=== PATIENT | male | born 1975 | race Caucasian/White ===

== ENCOUNTER 2018-04-02 14:47 | Observation (INO) | payer OTHER ==
[~2018-04-02] VITALS: Ht 182.9 cm; Wt 99.8 kg
--- OUTSIDE RECORDS SUMMARY | 2018-04-02 14:51 | XMS REPORT | Continuity of Care Document ---
Author Author [facility] Organization [facility] Address Unknown Phone Unavailable Allergies There is no data. Medications There is no data. Problems Date Dx Coded Attending Type Code Diagnosis Diagnosed By 04/24/2012 Ot 257.2 04/24/2012 Ot 608.85 08/11/2012 Ot 257.2 08/11/2012 Ot 608.85 05/25/2014 JOSÉ MIGUEL MITCHELL, JAMSHID Agu[place] Ot 606.1 06/14/2014 Ot 257.2 06/14/2014 Ot 608.85 06/14/2014 JOSÉ MIGUEL MITCHELL, JAMSHID [place] Ot 606.1 06/15/2014 NISHA MITCHELL, FREEDOM [place] Ot 606.9 07/27/2014 NISHA MITCHELL, FREEDOM [place] Ot 606.9 08/18/2014 Ot 257.2 08/18/2014 Ot 608.85 08/18/2014 JOSÉ MIGUEL MITCHELL, JAMSHID [place] Ot 606.1 08/18/2014 NISHA MITCHELL, FREEDOM [place] Ot 606.9 09/12/2014 NISHA MITCHELL, FREEDOM [place] Ot 606.9 11/26/2014 NISHA MITCHELL, FREEDOM [place] Ot 606.9 01/04/2015 NISHA MITCHELL, FREEDOM A Ot 606.9 01/05/2015 NISHA MITCHELL, FREEDOM A Ot 606.9 01/26/2015 NISHA MITCHELL, FREEDOM Burgos Ot 606.9 Procedures There is no data. Results There is no data. Encounters ACCT No. Visit Date/Time Discharge Status Pt. Type Provider Facility Loc./Unit Complaint [id number] 01/27/2015 00:56:00 01/27/2015 23:59:59 CLS Preadmit FREEDOM CAMERON MD [facility] LAB [id number] 01/19/2015 11:14:00 01/26/2015 00:01:00 DIS Outpatient FREEDOM CAMERON MD [facility] LAB [id number] 10/01/2014 08:03:00 12/28/2014 00:01:00 DIS Outpatient FREEDOM CAMERON MD [facility] LAB [id number] 09/29/2014 12:43:00 09/29/2014 12:43:00 CAN Preadmit FREEDOM CAMERON MD [facility] LAB [id number] 06/14/2014 15:57:00 06/14/2014 23:59:59 CLS Outpatient FREEDOM CAMERON MD [facility] LAB [id number] 05/26/2014 00:37:00 05/26/2014 23:59:59 CLS Preadmit JAMSHID VALDEZ MD [facility] LAB [id number] 03/01/2014 07:51:00 05/25/2014 00:01:00 DIS Outpatient JAMSHID VALDEZ MD [facility] LAB [id number] 08/12/2012 00:00:00 Document Registration [id number] 05/15/2012 06:10:00 Document Registration [id number] 01/31/2012 14:02:00 Document Registration [id number] 01/20/2015 04:21:36 ACT Document Registration
--- OUTSIDE RECORDS SUMMARY | 2018-04-02 14:51 | XMS REPORT | Clinical Summary ---
Author Author [facility] Organization [facility] Address Unknown Phone Unavailable Care Team Providers Care Lens Maker Name Role Phone Pedro Finn MD Unavailable Source Comments Some departments are not documenting in the electronic medical record. If you do not see the information that you expected, contact Release of Information in the Health Information Management department at [phone] for further assistance in locating additional records.[facility] Allergies No Known Allergies Current Medications Prescription Sig. Disp. Refills Start End Date Status Date clomiPRAMINE(+) Take 50 mg by mouth at Active (ANAFRANIL) 50 mg capsule bedtime daily. omeprazole DR(+) Take 40 mg by mouth Active (PRILOSEC) 40 mg capsule daily. MONTELUKAST SODIUM Take by mouth. 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 Miscarriage at 9 weeks, 1 year later in 2012. SAs variable but good patency. Motility decreased - last SA 01/11 25% Trial of clomid by Dr Spencer. 06/13 until now. . Normal cycles. L ast Assessment & Plan: Post vas reversal infertility. Good patency. 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 Repeat Sa with ASA Role of IUI vs IVF will be in part based on severity of ASA and/or consideration of trial IUI prep and IUI even in the face of ASA - some data does show that not always relevent - will see if head binding. Etc. Family History Medical History Relation Name Comments Stroke Father Testicular Cancer Paternal Grandmother Relation Name Status Comments Father Paternal Grandmother Social History Tobacco Use Types Packs/Day Years Used Date Never Smoker Smokeless Tobacco: Never Used Alcohol Use Drinks/Week oz/Week Comments No 0 Standard 0.0 drinks or equivalent Sex Assigned at Date Recorded Not on file Last Filed Vital Signs Vital Sign Reading Time Taken Blood Pressure 163/84 03/16/2015 12:44 PM HAND BOBBIN CLE[employer]ER Pulse 67 03/16/2015 12:44 PM HAND [employer] Temperature 37 C (98.6 F) 03/16/2015 12:44 PM HAND [employer]OBBIN [employer] Respiratory Rate - - Oxygen Saturation - - Inhaled Oxygen - - Concentration Weight 97.5 kg (215 lb) 03/16/2015 12:44 PM HAND [employer] CLE[employer] Height 182.9 cm (6') 03/16/2015 12:44 PM HAND [employer]OBBIN CLE[employer]ER Body Mass Index 29.16 03/16/2015 12:44 PM HAND [employer]OBBIN [employer]ER Plan of Treatment Health Maintenance Due Date Last Done Comments PHYSICAL (COMPREHENSIVE) 1981 EXAM HIV SCREENING 1989 DTAP/TDAP VACCINES (1 - 1992 Tdap) INFLUENZA VACCINE 11/27/2017 Results Not on filefrom Last 3 Months
[2018-04-02] MEDS ORDERED: NS IV 1000 ML 1,000 ML IV SCH (15:49)
[2018-04-02 15:58] LABS: BASOPHILS # (AUTO) 0.1 10^3/uL (0.0-0.1); BASOPHILS % (AUTO) 0 % (0-10); EOSINOPHILS # (AUTO) 0.2 10^3/uL (0.0-0.3); EOSINOPHILS % (AUTO) 1 % (0-10); HEMATOCRIT 47 % (40-54); HEMOGLOBIN 16.6 G/DL (13.3-17.7); LYMPHOCYTES % (AUTO) 17 % (12-44); MEAN CORPUSCULAR HEMOGLOBIN 31 PG (25-34); MEAN CORPUSCULAR HGB CONC 35 G/DL (32-36); MEAN CORPUSCULAR VOLUME 87 FL (80-99); MONOCYTES # (AUTO) 1.7 X 10^3 (0.0-1.0); MONOCYTES % (AUTO) 10 % (0-12); NEUTROPHILS # (AUTO) 12.6 X 10^3 (1.8-7.8); NEUTROPHILS % (AUTO) 72 % (42-75); PLATELET COUNT 243 10^3/uL (130-400); RED CELL DISTRIBUTION WIDTH 12.7 % (10.0-14.5); WHITE BLOOD COUNT 17.6 10^3/uL (4.3-11.0)
[2018-04-02 15:58] LABS: BILIRUBIN,URINE NEGATIVE (NEGATIVE); CLARITY,URINE CLEAR; COLOR,URINE YELLOW; GLUCOSE, URINE (UA) NEGATIVE (NEGATIVE); KETONES,URINE NEGATIVE (NEGATIVE); LEUKOCYTE ESTERASE ,URINE NEGATIVE (NEGATIVE); NITRITE,URINE NEGATIVE (NEGATIVE); PH,URINE 5 (5-9); PROTEIN,URINE NEGATIVE (NEGATIVE); UROBILINOGEN,URINE NORMAL (NORMAL)
[2018-04-02] MEDS ORDERED: IOHEXOL 350 MG/ML 100 ML (OMNIPAQUE 350) VIAL IV ONE (16:00)
[2018-04-02] MEDS ORDERED: RECEIVED CONTRAST (Hold Metformin) IV SCH (16:00)
[2018-04-02] MEDS ORDERED: NS 250 ML (IVPB) BAG IV ONE (16:00)
[2018-04-02] MEDS ORDERED: KETOROLAC 30 MG/ML VIAL IVP ONE (16:00)
--- NOTE | 2018-04-02 16:02 | ED Abdominal Pain ---
General Stated Complaint: ABD PAIN Source of Information: Patient Exam Limitations: No Limitations History of Present Illness Date Seen by Provider: Apr 02, 2018 Time Seen by Provider: 15:35 Initial Comments Patient is a 42-year-old male who presents to emergency room with complaints of left lower quadrant abdominal pain and tenderness that started around 5:30 this morning. He denies nausea, vomiting, diarrhea and thought that this was just a little bit of constipation pain is normal for him but has just continued to get worse. Timing/Duration: 12 Hours Severity/Quality: Severe Location: LLQ Associated Symptoms: Denies Symptoms Allergies and Home Medications Allergies Coded Allergies: No Known Drug Allergies (Unverified , 04/02/18) Patient Home Medication List Home Medication List Reviewed: Yes Review of Systems Review of Systems Constitutional: no symptoms reported, see HPI Gastrointestinal: See HPI, Abdominal Pain All Other Systems Reviewed Negative Unless Noted: Yes Past Pzinroe-Eayznj-Vbaqtb Hx Past Med/Social Hx: Reviewed Nursing Past Med/Soc Hx Family Medical History Reviewed Nursing Family Hx Physical Exam Vital Signs Vital Signs - First Documented 04/02/18 15:30 Temp 98.1 Pulse 100 Resp 11 B/P (MAP) 144/99 (114) Pulse Ox 98 O2 Delivery Room Air Capillary Refill : Height/Weight/BMI Height: '" Weight: lbs. oz. kg; BMI Method: General Appearance: WD/WN, no apparent distress Respiratory: chest non-tender, lungs clear, normal breath sounds, no respiratory distress, no accessory muscle use Cardiovascular: normal peripheral pulses, regular rate, rhythm, no edema, no gallop, no JVD, no murmur Gastrointestinal: normal bowel sounds, soft, no organomegaly, no pulsatile mass , guarding, tenderness (severe left lower quadrant tenderness with light palpation.) Neurologic/Psychiatric: alert, normal mood/affect, oriented x 3 Skin: normal color, warm/dry Progress/Results/Core Measures Results/Orders Lab Results Laboratory Tests Test 04/02/18 15:30 04/02/18 15:45 Range/Units Urine Color YELLOW Urine Clarity CLEAR Urine pH 5 5-9 Urine Specific [place] 1.020 1.016-1.022 Urine Protein NEGATIVE NEGATIVE Urine Glucose (UA) NEGATIVE NEGATIVE Urine Ketones NEGATIVE NEGATIVE Urine Nitrite NEGATIVE NEGATIVE Urine Bilirubin NEGATIVE NEGATIVE Urine Urobilinogen NORMAL NORMAL MG/DL Urine Leukocyte Esterase NEGATIVE NEGATIVE Urine RBC (Auto) NEGATIVE NEGATIVE Urine RBC NONE /HPF Urine WBC NONE /HPF Urine Squamous Epithelial Cells RARE /HPF Urine Crystals NONE /LPF Urine Bacteria NONE /HPF Urine Casts NONE /LPF Urine Mucus NEGATIVE /LPF Urine Culture Indicated NO White Blood Count 17.6 H 4.3-11.0 10^3/uL Red Blood Count 5.40 4.35-5.85 10^6/uL Hemoglobin 16.6 13.3-17.7 G/DL Hematocrit 47 40-54 % Mean Corpuscular Volume 87 80-99 FL Mean Corpuscular Hemoglobin 31 25-34 PG Mean Corpuscular Hemoglobin Concent 35 32-36 G/DL Red Cell Distribution Width 12.7 10.0-14.5 % Platelet Count 243 130-400 10^3/uL Mean Platelet Volume 10.0 7.4-10.4 FL Neutrophils (%) (Auto) 72 42-75 % Lymphocytes (%) (Auto) 17 12-44 % Monocytes (%) (Auto) 10 0-12 % Eosinophils (%) (Auto) 1 0-10 % Basophils (%) (Auto) 0 0-10 % Neutrophils # (Auto) 12.6 H 1.8-7.8 X 10^3 Lymphocytes # (Auto) 3.0 1.0-4.0 X 10^3 Monocytes # (Auto) 1.7 H 0.0-1.0 X 10^3 Eosinophils # (Auto) 0.2 0.0-0.3 10^3/uL Basophils # (Auto) 0.1 0.0-0.1 10^3/uL Neutrophils % (Manual) 68 % Lymphocytes % (Manual) 23 % Monocytes % (Manual) 5 % Eosinophils % (Manual) 2 % Basophils % (Manual) 0 % Band Neutrophils 2 % Blood Morphology Comment NORMAL Sodium Level 139 135-145 MMOL/L Potassium Level 4.2 3.6-5.0 MMOL/L Chloride Level 102 98-107 MMOL/L Carbon Dioxide Level 27 21-32 MMOL/L Anion Gap 10 5-14 MMOL/L Blood Urea Nitrogen 17 7-18 MG/DL Creatinine 1.06 0.60-1.30 MG/DL Estimat Glomerular Filtration Rate > 60 BUN/Creatinine Ratio 16 Glucose Level 95 70-105 MG/DL Calcium Level 9.9 8.5-10.1 MG/DL Corrected Calcium 8.5-10.1 MG/DL Total Bilirubin 1.5 H 0.1-1.0 MG/DL Aspartate Amino Transf (AST/SGOT) 21 5-34 U/L Alanine Aminotransferase (ALT/SGPT) 34 0-55 U/L Alkaline Phosphatase 73 40-136 U/L Total Protein 7.4 6.4-8.2 GM/DL Albumin 4.6 H 3.2-4.5 GM/DL Amylase Level 49 25-125 U/L Lipase 17 8-78 U/L My Orders Orders - TENA ARANDA Comprehensive Metabolic Panel (04/02/18 15:39) Lipase (04/02/18 15:39) Amylase (04/02/18 15:39) Saline Lock/Iv-Start (04/02/18 15:39) Cbc With Automated Diff (04/02/18 15:39) Ct Abdomen/Pelvis W (04/02/18 15:39) Iohexol Injection (Omnipaque 350 Mg/Ml 1 (04/02/18 16:00) Contrast Received (Contrast Received) (04/02/18 16:00) Ns (Ivpb) (Sodium Chloride 0.9%) (04/02/18 16:00) Ketorolac Injection (Toradol Injection) (04/02/18 16:00) Saline Lock/Iv-Start (04/02/18 15:49) Ns Iv 1000 Ml (Sodium Chloride 0.9%) (04/02/18 15:49) Manual Differential (04/02/18 15:45) Medications Given in ED Current Medications Medications Dose Ordered Sig/Vanda Route Start Time Stop Time Status Last Admin Dose Admin Iohexol 100 ml ONCE ONCE IV 04/02/18 16:00 04/02/18 16:01 DC 04/02/18 16:08 100 ML Ketorolac Tromethamine 30 mg ONCE ONCE IVP 04/02/18 16:00 04/02/18 16:01 DC 04/02/18 16:00 30 MG Sodium Chloride 250 ml ONCE ONCE IV 04/02/18 16:00 04/02/18 16:01 DC 04/02/18 16:08 80 ML Vital Signs/I&O 04/02/18 15:30 Temp 98.1 Pulse 100 Resp 11 B/P (MAP) 144/99 (114) Pulse Ox 98 O2 Delivery Room Air 04/03/18 00:00 Intake Total 1000 ml Balance 1000 ml Progress Progress Note : Time: 17:19 Progress Note I have seen and evaluated the patient and informed him of laboratory and imaging studies. I have informed him of plans for admission. I have discussed case with Dr. Salomon and Dr. Castillo and they agree with plans for admission. Diagnostic Imaging Diagonstic Imaging: CT Plain Films/CT/US/NM/MRI: abdomen, pelvis Comments [facility] [place] NAME: TENA RYDER [facility] REC#: [id number] PT STATUS: REG ER : 1975 PHYSICIAN: TENA ARANDA ADMIT DATE: 04/02/18/ER Draft Date of Exam:04/02/18 CT ABDOMEN/PELVIS W PROCEDURE: CT abdomen and pelvis with contrast. TECHNIQUE: Multiple contiguous axial images were obtained through the abdomen and pelvis after administration of intravenous contrast. INDICATION: Left lower quadrant abdominal pain. FINDINGS: There is mild dependent atelectasis in the lung bases. Mild low-density seen throughout the liver indicating steatosis. Gallbladder surgically absent. No focal hepatic, pancreatic or splenic lesion is identified. Adrenal glands are unremarkable. There are multiple scattered low-density nodules in both kidneys likely representing cortical cyst. There is excretion of contrast from both kidneys. The appendix has a normal appearance. There is mild to moderate mural thickening in the distal descending colon extending into the upper sigmoid colon with mild surrounding edema and/or inflammation. No focal fluid collection is identified to indicate an abscess. Partially opacified urinary bladder is unremarkable. IMPRESSION: Findings are consistent with acute diverticulitis involving the distal descending colon and sigmoid colon without evidence of perforation or abscess. Dictated on workstation # [id number] Dict: 04/02/18 1624 Trans: 04/02/18 1627 [facility] [id number] Interpreted by: JITENDRA STALLWORTH MD Electronically signed by: Reviewed: Reviewed by Me Departure Communication (Admissions) Time/Spoke to Admitting Phy: 17:19 Dr. Salomon Time/Spoke to Consulting Phy: 17:20 Dr Castillo Impression Primary Impression: Acute diverticulitis Disposition: ADMITTED INPATIENT Condition: Stable Admissions Decision to Admit Reason: Admit from ER (General) Decision to Admit/Date: Apr 02, 2018 Time/Decision to Admit Time: 17:19 Departure-Patient Inst. Referrals: OSCAR HARRELL DO (PCP) Primary Care Physician TENA ARANDA Apr 02, 2018 16:02
[2018-04-02 16:14] LABS: SQUAMOUS EPITHELIAL CELL,UR RARE /HPF
[2018-04-02 16:19] LABS: BAND NEUTROPHILS 2 %; BASOPHILS % (MANUAL) 0 %; EOSINOPHILS % (MANUAL) 2 %; LYMPHOCYTES % (MANUAL) 23 %; MONOCYTES % (MANUAL) 5 %; NEUTROPHILS % (MANUAL) 68 %; RBC MORPH NORMAL
[2018-04-02 16:22] LABS: ALANINE AMINOTRANSFERASE 34 U/L (0-55); ALBUMIN 4.6 GM/DL (3.2-4.5); ALKALINE PHOSPHATASE 73 U/L (40-136); AMYLASE 49 U/L (25-125); BILIRUBIN,TOTAL 1.5 MG/DL (0.1-1.0); BUN/CREATININE RATIO 16; CALCIUM 9.9 MG/DL (8.5-10.1); CARBON DIOXIDE 27 MMOL/L (21-32); CHLORIDE 102 MMOL/L (98-107); CREATININE SERUM 1.06 MG/DL (0.60-1.30); GFR ESTIMATED > 60; GLUCOSE 95 MG/DL (70-105); LIPASE 17 U/L (8-78); POTASSIUM 4.2 MMOL/L (3.6-5.0); SODIUM 139 MMOL/L (135-145); TOTAL PROTEIN 7.4 GM/DL (6.4-8.2)
--- NOTE | 2018-04-02 16:27 | Diagnostic Imaging Report ---
PROCEDURE: CT abdomen and pelvis with contrast. TECHNIQUE: Multiple contiguous axial images were obtained through the abdomen and pelvis after administration of intravenous contrast. INDICATION: Left lower quadrant abdominal pain. FINDINGS: There is mild dependent atelectasis in the lung bases. Mild low-density seen throughout the liver indicating steatosis. Gallbladder surgically absent. No focal hepatic, pancreatic or splenic lesion is identified. Adrenal glands are unremarkable. There are multiple scattered low-density nodules in both kidneys likely representing cortical cyst. There is excretion of contrast from both kidneys. The appendix has a normal appearance. There is mild to moderate mural thickening in the distal descending colon extending into the upper sigmoid colon with mild surrounding edema and/or inflammation. No focal fluid collection is identified to indicate an abscess. Partially opacified urinary bladder is unremarkable. IMPRESSION: Findings are consistent with acute diverticulitis involving the distal descending colon and sigmoid colon without evidence of perforation or abscess. Dictated by: Dictated on workstation # [id number]
--- OUTSIDE RECORDS SUMMARY | 2018-04-02 17:38 | XMS REPORT | Clinical Summary ---
Author Author [facility] Organization [facility] Address Unknown Phone Unavailable Care Team Providers Care Speeder Tender Name Role Phone Pedro Finn MD Unavailable Source Comments Some departments are not documenting in the electronic medical record. If you do not see the information that you expected, contact Release of Information in the Health Information Management department at [phone] for further assistance in locating additional records.[facility] Allergies No Known Allergies Current Medications Prescription [...] Taken Blood Pressure 163/84 03/16/2015 12:44 PM PLASTERER SPOT Pulse 67 03/16/2015 12:44 PM PLASTERER SPOT Temperature 37 C (98.6 F) 03/16/2015 12:44 PM PLASTERER SPOT Respiratory Rate - - Oxygen Saturation - - Inhaled Oxygen - - Concentration Weight 97.5 kg (215 lb) 03/16/2015 12:44 PM PLASTERER SPOT Height 182.9 cm (6') 03/16/2015 12:44 PM PLASTERER SPOT Body Mass Index 29.16 03/16/2015 12:44 PM PLASTERER SPOT Plan of Treatment Health Maintenance Due Date Last Done Comments PHYSICAL (COMPREHENSIVE) 1981 EXAM HIV SCREENING 1989 DTAP/TDAP VACCINES (1 - 1992 Tdap) INFLUENZA VACCINE 11/27/2017 Results Not on filefrom Last 3 Months
--- OUTSIDE RECORDS SUMMARY | 2018-04-02 17:38 | XMS REPORT | Continuity of Care Document ---
Author Author [facility] Organization [facility] Address Unknown Phone Unavailable Allergies There is [...] [place] Ot 606.9 07/27/2014 NISHA MITCHELL, FREEDOM A Ot 606.9 08/18/2014 Ot 257.2 08/18/2014 Ot 608.85 08/18/2014 JOSÉ MIGUEL MITCHELL, JAMSHID [place] Ot 606.1 08/18/2014 NISHA MITCHELL, FREEDOM [place] Ot 606.9 09/12/2014 NISHA MITCHELL, FREEDOM [place] Ot 606.9 11/26/2014 NISHA MITCHELL, FREEDOM [place] Ot 606.9 01/04/2015 NISHA MITCHELL, FREEDOM [facility] Ot 606.9 01/05/2015 NISHA MITCHELL, FREEDOM A Ot 606.9 01/26/2015 NISHA MITCHELL, FREEDOM [place] Ot 606.9 Procedures There is no data. Results Test Result Range Complete urinalysis with reflex to culture - 04/02/18 15:30 Urine color determination YELLOW NRG Urine clarity determination CLEAR NRG Urine pH measurement by test strip 5 5-9 Specific gravity of urine by test strip 1.020 1.016- 1.022 Urine protein assay by test strip, semi-quantitative NEGATIVE NEGATIVE Urine glucose detection by automated test strip NEGATIVE NEGATIVE Erythrocytes detection in urine sediment by light microscopy NEGATIVE NEGATIVE Urine ketones detection by automated test strip NEGATIVE NEGATIVE Urine nitrite detection by test strip NEGATIVE NEGATIVE Urine total bilirubin detection by test strip NEGATIVE NEGATIVE Urine urobilinogen measurement by automated test strip (mass/volume) NORMAL NORMAL Urine leukocyte esterase detection by dipstick NEGATIVE NEGATIVE Automated urine sediment erythrocyte count by microscopy (number/high power field) NONE NRG Automated urine sediment leukocyte count by microscopy (number/high power field ) NONE NRG Bacteria detection in urine sediment by light microscopy NONE NRG Squamous epithelial cells detection in urine sediment by light microscopy RARE NRG Crystals detection in urine sediment by light microscopy NONE NRG Casts detection in urine sediment by light microscopy NONE NRG Mucus detection in urine sediment by light microscopy NEGATIVE NRG Complete urinalysis with reflex to culture NO NRG Complete blood count (CBC) with automated white blood cell (WBC) differential - 04/02/18 15:45 Blood leukocytes automated count (number/volume) 17.6 10*3/uL 4.3-11.0 Blood erythrocytes automated count (number/volume) 5.40 10*6/uL 4.35-5.85 Venous blood hemoglobin measurement (mass/volume) 16.6 g/dL 13.3-17.7 Blood hematocrit (volume fraction) 47 % 40-54 Automated erythrocyte mean corpuscular volume 87 [foz_us] 80-99 Automated erythrocyte mean corpuscular hemoglobin (mass per erythrocyte) 31 pg 25-34 Automated erythrocyte mean corpuscular hemoglobin concentration measurement ( mass/volume) 35 g/dL 32-36 Automated erythrocyte distribution width ratio 12.7 % 10.0-14.5 Automated blood platelet count (count/volume) 243 10*3/uL 130-400 Automated blood platelet mean volume measurement 10.0 [foz_us] 7.4-10.4 Automated blood neutrophils/100 leukocytes 72 % 42-75 Automated blood lymphocytes/100 leukocytes 17 % 12-44 Blood monocytes/100 leukocytes 10 % 0-12 Automated blood eosinophils/100 leukocytes 1 % 0-10 Automated blood basophils/100 leukocytes 0 % 0-10 Blood neutrophils automated count (number/volume) 12.6 10*3 1.8-7.8 Blood lymphocytes automated count (number/volume) 3.0 10*3 1.0-4.0 Blood monocytes automated count (number/volume) 1.7 10*3 0.0-1.0 Automated eosinophil count 0.2 10*3/uL 0.0-0.3 Automated blood basophil count (count/volume) 0.1 10*3/uL 0.0-0.1 Blood manual differential performed detection - 04/02/18 15:45 Blood monocytes/100 leukocytes 5 % NRG Manual blood segmented neutrophils/100 leukocytes 68 % NRG Blood band neutrophils/100 leukocytes 2 % NRG Manual blood lymphocytes/100 leukocytes 23 % NRG Manual eosinophils/100 leukocytes in nose 2 % NRG Manual blood basophils/100 leukocytes 0 % NRG Blood erythrocyte morphology finding identification NORMAL NRG Comprehensive metabolic panel - 04/02/18 15:45 Serum or plasma sodium measurement (moles/volume) 139 mmol/L 135-145 Serum or plasma potassium measurement (moles/volume) 4.2 mmol/L 3.6-5.0 Serum or plasma chloride measurement (moles/volume) 102 mmol/L 98-107 Carbon dioxide 27 mmol/L 21-32 Serum or plasma anion gap determination (moles/volume) 10 mmol/L 5-14 Serum or plasma urea nitrogen measurement (mass/volume) 17 mg/dL 7-18 Serum or plasma creatinine measurement (mass/volume) 1.06 mg/dL 0.60-1.30 Serum or plasma urea nitrogen/creatinine mass ratio 16 NRG Serum or plasma creatinine measurement with calculation of estimated glomerular filtration rate > NRG Serum or plasma glucose measurement (mass/volume) 95 mg/dL 70-105 Serum or plasma calcium measurement (mass/volume) 9.9 mg/dL 8.5-10.1 Serum or plasma total bilirubin measurement (mass/volume) 1.5 mg/dL 0.1-1.0 Serum or plasma alkaline phosphatase measurement (enzymatic activity/volume) 73 U/L 40-136 Serum or plasma aspartate aminotransferase measurement (enzymatic activity/ volume) 21 U/L 5-34 Serum or plasma alanine aminotransferase measurement (enzymatic activity/volume ) 34 U/L 0-55 Serum or plasma protein measurement (mass/volume) 7.4 g/dL 6.4-8.2 Serum or plasma albumin measurement (mass/volume) 4.6 g/dL 3.2-4.5 Serum or plasma amylase measurement (enzymatic activity/volume) - 04/02/18 15: 45 Serum or plasma amylase measurement (enzymatic activity/volume) 49 U /L 25-125 Lipase - 04/02/18 15:45 Lipase 17 U/L 8-78 Encounters ACCT No. Visit Date/Time Discharge Status Pt. Type Provider Facility Loc./Unit Complaint [id number] 01/27/2015 00:56:00 01/27/2015 23:59:59 CLS Preadmit FREEDOM CAMERON MD [facility] LAB [id number] 01/19/2015 11:14:00 01/26/2015 00:01:00 DIS Outpatient FREEDOM CAMERON MD [facility] LAB [id number] 10/01/2014 08:03:00 12/28/2014 00:01:00 DIS Outpatient FREEDOM CAMERON MD [facility] LAB [id number] 09/29/2014 12:43:00 09/29/2014 12:43:00 CAN PreadFREEDOM Vang MD [facility] LAB [id number] 06/14/2014 15:57:00 06/14/2014 23:59:59 CLS Outpatient FREEDOM CAMERON MD [facility] LAB [id number] 05/26/2014 00:37:00 05/26/2014 23:59:59 CLS Preadmit JAMSHID VALDEZ MD [facility] LAB [id number] 03/01/2014 07:51:00 05/25/2014 00:01:00 DIS Outpatient JAMSHID VALDEZ MD [facility] LAB [id number] 04/02/2018 16:00:00 Document Registration [id number] 08/12/2012 00:00:00 Document Registration [id number] 05/15/2012 06:10:00 Document Registration [id number] 01/31/2012 14:02:00 Document Registration [id number] 01/20/2015 04:21:36 ACT Document Registration
[2018-04-02 18:55] VITALS: BP 142/87
[2018-04-02] MEDS ORDERED: fentaNYL INJECTION 100 MCG/2 ML AMP IV PRN (19:15)
[2018-04-02] MEDS ORDERED: CATHETER FLUSH 10 ML SYR IV PRN (19:15)
[2018-04-02] MEDS: CIPROFLOXACIN IV 400MG/200ML 200 ML IV SCH (19:34)
[2018-04-02] MEDS: NS IV 1000 ML 1,000 ML IV SCH (19:34)
[2018-04-02] MEDS ORDERED: HYDROcodone/APAP 7.5 MG/325 MG (LORTAB, LORCET PLUS) TABLET PO PRN (20:15)
--- NOTE | 2018-04-02 20:31 | HISTORY AND PHYSICAL ---
DATE OF SERVICE: 04/02/2018 HISTORY OF PRESENT ILLNESS: The patient is a 42-year-old male who presented to [facility] Emergency Department with left lower abdominal quadrant pain, which started early this morning at around 5:30 a.m. He reports that the pain persisted and even worsened over time. He did not report any nausea, no vomiting. He also does not report any diarrhea; however, he has had some constipation in the past several days; however, this is his baseline. He does not report any red blood per rectum nor any dark tarry stools. Pain is in the left lower abdominal quadrant. There are no peritoneal signs. A CT scan was performed, which did show inflammation of the sigmoid colon without any abscess or fluid collection and appears to be a noncomplicated diverticulitis. He has also not had a colonoscopy up to this point in his life. PAST MEDICAL HISTORY: None. PAST SURGICAL HISTORY: Laparoscopic cholecystectomy. ALLERGIES: No known drug allergies. MEDICATIONS: None. SOCIAL HISTORY: Negative smoke, negative alcohol. FAMILY HISTORY: Mother breast cancer. VITAL SIGNS: Temperature 97.7, blood pressure 142/87, pulse 82, respirations 17, pulse ox 97% on room air. REVIEW OF SYSTEMS: Well-nourished male in no acute distress. He is not experiencing any shortness of breath and difficulty breathing. No chest pain, palpitations, diaphoresis. No nausea, vomiting with a longstanding history of constipation with well-formed stools that do require some straining upon defecation on an intermittent basis. No red blood per rectum, no dark tarry stools. He does have pain in the left lower abdominal quadrant with voluntary guarding, no rebound. No fever, chills, no recent inadvertent weight loss. All other review of systems negative. PHYSICAL EXAMINATION: CHEST: Clear. Good breath sounds bilaterally. HEART: Regular, no murmurs. EXTREMITIES: No lower extremity edema, negative Homans sign. HEENT: No scleral icterus. NECK: No cervical lymphadenopathy. ABDOMEN: Soft, nondistended. There is pain in the left lower abdominal quadrant upon deep palpation. There is voluntary guarding, no rebound, no palpable masses. SKIN: Warm, dry. LABORATORY DATA: WBC 17.6, hemoglobin 16.6, hematocrit 47. BUN 17, creatinine 1.06, total bilirubin 1.5. ASSESSMENT AND PLAN: A 42-year-old male with uncomplicated sigmoid diverticulitis. We will proceed with conservative management with bowel rest, clear liquid diet, IV fluids as well as IV antibiotics including ciprofloxacin and metronidazole q.12h. We will also monitor and follow his physical examination as well as laboratory work and once he is asymptomatic, we will discharge him home on a low-residue diet for 4-6 weeks and then also recommend a followup colonoscopy in approximately 6 weeks. Long-term, he will need to follow a high-fiber diet with at least 30 grams of fiber per day as well as copious amounts of water to promote soft stools on a daily basis. Job ID: [id number] DocumentID: [id number] Dictated Date: 04/02/2018 20:07:44 Certified Orthotist/Pedorthist Date: 04/02/2018 20:30:46 Dictated By: MELIA WILSON MD MTDD
[2018-04-02] MEDS ORDERED: CALCIUM CARBONATE 500 MG (TUMS) TAB.CHEW PO PRN (20:45)
[2018-04-02] MEDS ORDERED: ALPRAZolam 0.25 MG (XANAX) TAB PO PRN (20:45)
[2018-04-02] MEDS ORDERED: diphenhydrAMINE 25 MG TAB (BENADRYL) PO PRN (20:45)
[2018-04-02] MEDS ORDERED: ACETAMINOPHEN 500 MG TAB (TYLENOL) PO PRN (20:45)
[2018-04-02] MEDS ORDERED: IBUPROFEN TABLET 200 MG TAB PO PRN (20:45)
[2018-04-02] MEDS ORDERED: ONDANSETRON 4 MG/2 ML (SDV) Z0FRAN IVP PRN (20:45)
[2018-04-02] MEDS: metroNIDAZOLE 500 MG/100 ML IVPB (PRE-MIX) IV SCH (21:50)
[2018-04-02 23:30] VITALS: BP 105/67
[2018-04-03] MEDS: KETOROLAC 30 MG/ML VIAL IV PRN ×3 (00:16→18:19)
[2018-04-03 04:15] VITALS: BP 114/76
[2018-04-03] MEDS: metroNIDAZOLE 500 MG/100 ML IVPB (PRE-MIX) IV SCH ×2 (05:11→13:48)
[2018-04-03 05:44] LABS: BASOPHILS # (AUTO) 0.1 10^3/uL (0.0-0.1); BASOPHILS % (AUTO) 0 % (0-10); EOSINOPHILS # (AUTO) 0.2 10^3/uL (0.0-0.3); EOSINOPHILS % (AUTO) 1 % (0-10); HEMATOCRIT 43 % (40-54); HEMOGLOBIN 14.7 G/DL (13.3-17.7); LYMPHOCYTES # (AUTO) 2.2 X 10^3 (1.0-4.0); LYMPHOCYTES % (AUTO) 19 % (12-44); MEAN CORPUSCULAR HEMOGLOBIN 31 PG (25-34); MEAN CORPUSCULAR HGB CONC 35 G/DL (32-36); MEAN CORPUSCULAR VOLUME 88 FL (80-99); MEAN PLATELET VOLUME 10.1 FL (7.4-10.4); MONOCYTES # (AUTO) 1.3 X 10^3 (0.0-1.0); MONOCYTES % (AUTO) 11 % (0-12); NEUTROPHILS # (AUTO) 7.8 X 10^3 (1.8-7.8); NEUTROPHILS % (AUTO) 68 % (42-75); PLATELET COUNT 218 10^3/uL (130-400); RED BLOOD COUNT 4.82 10^6/uL (4.35-5.85); RED CELL DISTRIBUTION WIDTH 12.8 % (10.0-14.5); WHITE BLOOD COUNT 11.5 10^3/uL (4.3-11.0)
[2018-04-03 06:28] LABS: ALANINE AMINOTRANSFERASE 29 U/L (0-55); ALBUMIN 3.8 GM/DL (3.2-4.5); ALKALINE PHOSPHATASE 58 U/L (40-136); BILIRUBIN,TOTAL 2.2 MG/DL (0.1-1.0); BUN/CREATININE RATIO 16; CARBON DIOXIDE 25 MMOL/L (21-32); CHLORIDE 107 MMOL/L (98-107); CREATININE SERUM 0.94 MG/DL (0.60-1.30); GFR ESTIMATED > 60; GLUCOSE 89 MG/DL (70-105); POTASSIUM 4.2 MMOL/L (3.6-5.0); SODIUM 141 MMOL/L (135-145)
[2018-04-03] MEDS: CIPROFLOXACIN IV 400MG/200ML 200 ML IV SCH (06:44)
[2018-04-03 08:00] VITALS: BP 129/75
[2018-04-03] MEDS ORDERED: OMEP20TA7 PO (08:34)
[2018-04-03] MEDS ORDERED: MONT10TA24 PO (08:34)
[2018-04-03] MEDS: NS IV 1000 ML 1,000 ML IV SCH (09:05)
--- NOTE | 2018-04-03 11:46 | Consultation-Hospitalist ---
HPI History of Present Illness: HPI/Chief Complaint Pt is a 42yoCM who presented to the ER due to abdominal pain. He states his symptoms started yesterday with severe lower left abdominal pain. He was found to have acute diverticulitis with leukocytosis and was admitted for conservative management. I am consulted for medical management. He has no known medical problems and plans to establish with Dr Olga Henderson in [place] for primary care. Source: patient Date Seen 04/03/18 Attending Physician Danica Salomon MD PCP Luis Manuel Henderson DO Referring Physician Date of Admission Apr 02, 2018 at 17:22 Home Medications & Allergies Home Medications Reviewed patient Home Medication Reconciliation performed by pharmacy medication reconciliations bulk mail technician and/or nursing. Patients Allergies have been reviewed. Allergies Allergies Coded Allergies No Known Drug Allergies (Hfjknlhawj25/5/18) Past Pmxvwrj-Nqcgls-Tsxmow Hx Past Med/Social Hx: Reviewed Nursing Past Med/Soc Hx Patient Social History Alcohol Use: Denies Use Recreational Drug Use: No Smoking Status: Never a Smoker 2nd Hand Smoke Exposure: No Physical Abuse Screen: No Sexual Abuse: No Recent Foreign Travel: No Contact w/other who traveled: No Recent Hopitalizations: No Recent Infectious Disease Expo: No Immunizations Up To Date Date of Influenza Vaccine: Jan 31, 2018 Seasonal Allergies Seasonal Allergies: Yes Past Medical History Gastrointestinal: Gastroesophageal Reflux History of Blood Disorders: No Adverse Reaction to Blood Huitron: No Family History Reviewed Nursing Family Hx Review of Systems Constitutional: No chills, No fever EENTM: No blurred vision, No double vision, No nose congestion, No throat pain Respiratory: No cough, No dyspnea on exertion, No short of breath Cardiovascular: No chest pain, No edema, No palpitations Gastrointestinal: see HPI Genitourinary: No dysuria, No frequency Musculoskeletal: No joint pain, No muscle pain Skin: No lesions, No rash Psychiatric/Neurological: Denies Headache, Denies Numbness, Denies Tingling Physical Exam Physical Exam Vital Signs Vital Signs - First Documented 04/02/18 15:30 Temp 98.1 Pulse 100 Resp 11 B/P (MAP) 144/99 (114) Pulse Ox 98 O2 Delivery Room Air Capillary Refill : Less Than 3 SecondsLess Than 3 Seconds Height, Weight, BMI Height: 6'0.00" Weight: 220lbs. 0.0oz. [id number]; 29.8 BMI Method:Stated General Appearance: No Apparent Distress, WD/WN HEENT: PERRL/EOMI, Moist Mucous Membranes Neck: Non Tender, Supple Respiratory: Lungs Clear, No Respiratory Distress Cardiovascular: Regular Rate, Rhythm, No Murmur Gastrointestinal: Normal Bowel Sounds, Non Tender, Soft Extremity: Normal Capillary Refill, No Calf Tenderness Neurologic/Psychiatric: Alert, Oriented x3, Normal Mood/Affect Skin: Normal Color, Warm/Dry Results Results/Procedures Labs Patient resulted labs reviewed. Imaging: Reviewed Imaging Report Assessment/Plan Assessment and Plan Assess & Plan/Chief Complaint Diverticulitis Diagnosis/Problems Diagnosis/Problems (1) Acute diverticulitis Status: Acute Assessment & Plan: Management per surgery leukocytosis improved Continue abx Pain controlled with Toradol Will need to follow up with Surgery as an outpatient Clinical Quality Measures DVT/VTE Risk/Contraindication: Risk Factor Score Per Nursin RFS Level Per Nursing on Admit: 1=Low/No VTE PPX DANICA SALOMON MD Apr 03, 2018 11:46
[2018-04-03 12:00] VITALS: BP 125/76
[2018-04-03 16:00] VITALS: BP 142/82
[2018-04-03 16:29] LABS: ALANINE AMINOTRANSFERASE 32 U/L (0-55); ALBUMIN 4.2 GM/DL (3.2-4.5); ALKALINE PHOSPHATASE 74 U/L (40-136); BILIRUBIN,TOTAL 1.7 MG/DL (0.1-1.0); BUN/CREATININE RATIO 14; CALCIUM 9.4 MG/DL (8.5-10.1); CARBON DIOXIDE 27 MMOL/L (21-32); CHLORIDE 106 MMOL/L (98-107); CREATININE SERUM 1.03 MG/DL (0.60-1.30); GFR ESTIMATED > 60; GLUCOSE 104 MG/DL (70-105); POTASSIUM 3.9 MMOL/L (3.6-5.0); SODIUM 141 MMOL/L (135-145); TOTAL PROTEIN 6.8 GM/DL (6.4-8.2)
--- NOTE | 2018-04-03 17:17 | Progress Note (SOAP) ---
Subjective Date Seen by a Provider: Apr 03, 2018 Time Seen by a Provider: 17:00 Subjective/Events-last exam doing much better. tolerating low residue diet. pain LLQ much less. no fever/ chills. Objective Exam Vital Signs Date Time Temp Pulse Resp B/P (MAP) Pulse Ox O2 Delivery O2 Flow Rate FiO2 04/03/18 16:00 99.1 77 16 142/82 (102) 100 Room Air 04/03/18 12:00 98.0 68 20 125/76 (92) 96 Room Air 04/03/18 08:00 97.3 66 20 129/75 (93) 98 Room Air 04/03/18 08:00 Room Air 04/03/18 04:15 98.2 61 18 114/76 (89) 96 Room Air 04/02/18 23:30 97.6 99 18 105/67 (80) 96 Room Air 04/02/18 19:10 Room Air 04/02/18 18:55 97.7 82 17 142/87 (105) 97 Room Air 04/02/18 18:50 98.1 90 12 136/90 (105) 98 Room Air I & O 04/03/18 07:00 Intake Total 2350 ml Balance 2350 ml Capillary Refill : Less Than 3 SecondsLess Than 3 Seconds General Appearance: No Apparent Distress HEENT: PERRL/EOMI Neck: Full Range of Motion Respiratory: Chest Non Tender, Lungs Clear, Normal Breath Sounds Cardiovascular: Regular Rate, Rhythm Gastrointestinal: normal bowel sounds, soft, tenderness Extremity: Normal Capillary Refill Neurologic/Psychiatric: Alert, Oriented x3 Skin: Normal Color Lymphatic: No Adenopathy Results Lab Laboratory Tests 04/03/18 04:45: White Blood Count 11.5H, Red Blood Count 4.82, Hemoglobin 14.7, Hematocrit 43, Mean Corpuscular Volume 88, Mean Corpuscular Hemoglobin 31, Mean Corpuscular Hemoglobin Concent 35, Red Cell Distribution Width 12.8, Platelet Count 218, Mean Platelet Volume 10.1, Neutrophils (%) (Auto) 68, Lymphocytes (%) (Auto) 19 , Monocytes (%) (Auto) 11, Eosinophils (%) (Auto) 1, Basophils (%) (Auto) 0, Neutrophils # (Auto) 7.8, Lymphocytes # (Auto) 2.2, Monocytes # (Auto) 1.3H, Eosinophils # (Auto) 0.2, Basophils # (Auto) 0.1, Sodium Level 141, Potassium Level 4.2, Chloride Level 107, Carbon Dioxide Level 25, Anion Gap 9, Blood Urea Nitrogen 15, Creatinine 0.94, Estimat Glomerular Filtration Rate > 60, BUN/ Creatinine Ratio 16, Glucose Level 89, Calcium Level 9.0, Corrected Calcium 9.2 , Total Bilirubin 2.2H, Aspartate Amino Transf (AST/SGOT) 30, Alanine Aminotransferase (ALT/SGPT) 29, Alkaline Phosphatase 58, Total Protein 6.0L, Albumin 3.8 04/03/18 15:54: Sodium Level 141, Potassium Level 3.9, Chloride Level 106, Carbon Dioxide Level 27, Anion Gap 8, Blood Urea Nitrogen 14, Creatinine 1.03, Estimat Glomerular Filtration Rate > 60, BUN/Creatinine Ratio 14, Glucose Level 104, Calcium Level 9.4, Corrected Calcium 9.2, Total Bilirubin 1.7H, Aspartate Amino Transf (AST/ SGOT) 24, Alanine Aminotransferase (ALT/SGPT) 32, Alkaline Phosphatase 74, Total Protein 6.8, Albumin 4.2 Assessment/Plan Assessment/Plan Assess & Plan/Chief Complaint non-complicated sigmoid diverticulitis. first episode. improving with conservative medical management. home soon. will continue PO abx for one week and low residue diet for 6 weeks then high fiber diet. will need OP colonoscopy in 6 weeks. Clinical Quality Measures DVT/VTE Risk/Contraindication: Risk Factor Score Per Nursin RFS Level Per Nursing on Admit: 1=Low/No VTE PPX MELIA WILSON MD Apr 03, 2018 17:17
[2018-04-03 18:35] VITALS: BP 142/82
== END 2018-04-03 18:22 | disposition home or self-care (01) ==
LOC: ER 14:47 → EDUNIT# 14:47 → UNDOADMOB 17:22 → 4TH 17:22
PROVIDERS: ADMIT Family Medicine; ATTEND Family Medicine
DX: K57.32 Diverticulitis of large intestine without perforation or abscess without bleeding (principal); K21.9 Gastro-esophageal reflux disease without esophagitis
CPT/HCPCS: 36415; 74177; 80053; 81000; 82150; 83690; 85007; 85025; 85027; 90471

== ENCOUNTER → 2018-05-09 | Outpatient (CLI) | payer OTHER ==
[~2018-05-09] MED LIST: MONT10TA24 PO; OMEP20TA7 PO
[2018-05-09 07:22] LABS: HEMOGLOBIN 16.6 G/DL (13.3-17.7); MEAN PLATELET VOLUME 10.2 FL (7.4-10.4); RED BLOOD COUNT 5.47 10^6/uL (4.35-5.85); RED CELL DISTRIBUTION WIDTH 12.5 % (10.0-14.5); WHITE BLOOD COUNT 8.4 10^3/uL (4.3-11.0)
[2018-05-09 07:44] LABS: ALANINE AMINOTRANSFERASE 40 U/L (0-55); ALBUMIN 4.4 GM/DL (3.2-4.5); ALKALINE PHOSPHATASE 65 U/L (40-136); BILIRUBIN,TOTAL 0.9 MG/DL (0.1-1.0); BUN/CREATININE RATIO 15; CALCIUM 9.6 MG/DL (8.5-10.1); CARBON DIOXIDE 24 MMOL/L (21-32); CHLORIDE 108 MMOL/L (98-107); CHOLESTEROL 152 MG/DL (< 200); CREATININE SERUM 1.16 MG/DL (0.60-1.30); GFR ESTIMATED > 60; GLUCOSE 104 MG/DL (70-105); HDL CHOLESTEROL 42 MG/DL (40-60); SODIUM 141 MMOL/L (135-145); TOTAL PROTEIN 6.9 GM/DL (6.4-8.2); TRIGLYCERIDES 74 MG/DL (<150); VLDL CHOLESTEROL 15 MG/DL (5-40)
== END ==
LOC: LAB 07:10
PROVIDERS: ATTEND Nurse Practitioner Family
DX: Z00.00 Encounter for general adult medical examination without abnormal findings (principal)
CPT/HCPCS: 36415; 80053; 80061; 84443; 85027

== ENCOUNTER 2018-05-22 05:39 | Outpatient (CLI) | payer OTHER ==
[~2018-05-22] VITALS: Ht 182.9 cm; Wt 103.9 kg
[2018-05-22] MEDS ORDERED: OMEP40CA36 PO (15:08)
== END 2018-05-22 15:09 | disposition home or self-care (01) ==
LOC: PREOP 05:39
PROVIDERS: ATTEND Surgery
DX: Z01.818 Encounter for other preprocedural examination (principal)

== ENCOUNTER → 2018-05-28 | Day surgery (SDC) | payer OTHER ==
[~2018-05-28] VITALS: Ht 182.9 cm; Wt 103.9 kg
[~2018-05-28] MED LIST changes: +ACETAMINOPHEN 325 MG TABLET PO PRN; +HYDROcodone/APAP 5 MG/325 MG (LORTAB) TAB PO PRN; +LIDOCAINE JELLY 2% 6 ML SYRINGE ONE; +MIDAZOLAM 2 MG/2 ML (VERSED) VIAL IVP ONE; +MIDAZOLAM 2 MG/2 ML (VERSED) VIAL ONE; +NS IV 500 ML 500 ML IV PRN; +NS IV 500 ML 500 ML ONE; +OMEP40CA36 PO; +ONDANSETRON 4 MG/2 ML (SDV) Z0FRAN IV PRN; +PROPOFOL INJECTION 50 ML IV ONE; +fentaNYL INJECTION 100 MCG/2 ML AMP IVP ONE; +fentaNYL INJECTION 100 MCG/2 ML AMP ONE; +morphine INJ 10 MG/ML 1ML (SYR OR VIAL) IV PRN; +proPOfol 200 MG/20 ML (DIPRIVAN) VIAL IV ONE
--- NOTE | 2018-05-28 10:14 | Conscious Sedation/ASA ---
Conscious Sedation Pre-Proced Time 10:10 ASA Score 1 For ASA 3 and 4: Consider anesthesia and medical clearance. Also, for patients with a history of failed moderate sedation consider anesthesia. Airway Lungs Heart ASA score ASA 1: a normal healthy patient ASA 2: a patient with a mild systemic disease (mid diabetes, controlled hypertension, obesity ASA 3: a patient with a severe systemic disease that limits activity (angina , COPD, prior Myocardial infarction) ASA 4: a patient with an incapacitating disease that is a constant threat to life (CHF, renal failure) ASA 5: a moribund patient not expected to survive 24 hrs. (ruptured aneurysm) ASA 6: a declared brain- patient whose organs are being harvested. For emergent operations, add the letter E after the classification Mallampati Classification Grade 2 Sedation Plan Analgesia, Amnesia, Plan communicated to team members, Discussed options with patient/fam, Discussed risks with patient/fam The patient is an appropriate candidate to undergo the planned procedure, sedation, and anesthesia. The patient immediately re-assessed prior to indication. MELIA WILSON MD May 28, 2018 10:14
--- NOTE | 2018-05-28 10:15 | Progress Note-Pre Operative ---
Pre-Operative Progress Note H&P Reviewed The H&P was reviewed, patient examined and no changes noted. Date Seen by Provider: May 28, 2018 Time Seen by Provider: 10:00 Date H&P Reviewed: May 28, 2018 Time H&P Reviewed: 10:10 Pre-Operative Diagnosis: hx diverticulitis MELIA WILSON MD May 28, 2018 10:15
--- NOTE | 2018-05-28 10:17 | Discharge Inst-Surgical ---
D/C Lap Instructions-STEVE Follow Up 7 yrs or PRN Activity as tolerated High Fiber Diet 25g or more per day Avoid Alcohol, Caffeine, Spicy Eccles and Acid foods. Drink 64 fluid oz or more of fluids per day. Symptoms to Report: Fever over 101 degree F, Nausea/Vomiting If any problems/questions: Contact your physician or go to Emergency Room MELIA WILSON MD May 28, 2018 10:17
[2018-05-28 10:50] VITALS: BP 118/92
[2018-05-28 13:05] VITALS: BP 95/58
--- NOTE | 2018-05-28 13:11 | Progress Note-Post Operative ---
Post-Operative Progess Note Surgeon (s)/Brokerage Purchase And Sale Clerk (s) Surgeon MELIA WILSON MD Brokerage Purchase And Sale Clerk: none Pre-Operative Diagnosis hx diverticulitis Post-Operative Diagnosis mild sigmoid diverticulosis. Procedure & Operative Findings Date of Procedure 05/28/18 Procedure Performed/Findings Colonoscopy Anesthesia Type CS Estimated Blood Loss Estimated blood loss (mL): minimal Specimens/Packing Specimens Removed none MELIA WILSON MD May 28, 2018 13:11
[2018-05-28 13:35] VITALS: BP 122/78
[2018-05-28 13:44] VITALS: BP 122/78
--- NOTE | 2018-05-28 14:44 | Anesthesia-General Post-Op ---
MAC Patient Condition Mental Status/LOC: Same as Preop Cardiovascular: Satisfactory Nausea/Vomiting: Absent Respiratory: Satisfactory Pain: Controlled Complications: Absent Post Op Complications Complications None Follow Up Care/Instructions Patient Instructions None needed. Anesthesiology Discharge Order Discharge Order Patient is doing well, no complaints, stable vital signs, no apparent adverse anesthesia problems. No complications reported per nursing. DUSTIN BROWN CRNA May 28, 2018 14:44
--- NOTE | 2018-05-28 21:32 | OPERATIVE REPORT ---
DATE OF SERVICE: 05/28/2018 ATTENDING PRIMARY CARE PHYSICIAN: Padma Ponce MD PREOPERATIVE DIAGNOSIS: History of sigmoid diverticulitis. POSTOPERATIVE DIAGNOSIS: Mild sigmoid diverticulosis. PROCEDURE: Colonoscopy. SURGEON: Melia Wilson MD ANESTHESIA: Monitored anesthesia care. ESTIMATED BLOOD LOSS: Minimal. FINDINGS: No significant hemorrhoids identified. Prostate gland was palpable and appeared normal. There was a mild sigmoid diverticulosis with no mucosal inflammatory changes to indicate any active diverticulitis. The remainder of the colon was normal. There were no polyps or any neoplasms identified. DISPOSITION: The patient tolerated the procedure well. INDICATIONS: The patient is a 71-year-old male with an acute episode of pain in left lower abdominal quadrant early March 2018. The patient also did have a slight leukocytosis and a CT scan was performed, which did show a mild inflammation of the sigmoid colon consistent with mild sigmoid diverticulitis. He was admitted overnight and felt much better after IV antibiotics and was discharged home the following day. He is otherwise doing well. Does not report any major issues with diarrhea nor constipation as well as no red blood per rectum nor any dark tarry stools. He also reports that this was his first episode. DESCRIPTION OF PROCEDURE: The patient was brought to the endoscopy suite in the left lateral decubitus position. After adequate IV pain and sedative medications and monitored anesthesia care, a digital rectal examination was performed. No significant hemorrhoids were identified. Normal sphincter tone was felt and there were no palpable masses. Prostate gland was palpable and appeared normal. The endoscope was then intubated to the anus and rectum gently insufflated. The endoscope was then advanced through the valves of Weaver of the rectum with no polyps or any neoplasms identified. Through the sigmoid colon, mild sigmoid diverticulosis identified. There were no mucosal inflammatory changes to indicate any active diverticulitis. The endoscope was then advanced to the remainder of the descending, transverse and ascending colon to the cecum. These segments were normal. There were no polyps or any neoplasms identified throughout the colon or rectum. The patient tolerated the procedure well. We will recommend conservative management with a high fiber diet with at least 30 grams of fiber per day as well as at least 64 fluid ounces of water daily to promote soft stools on a daily basis. He does not need another colonoscopy for another 10 years; however, sooner if he does become symptomatic. Job ID: [id number] DocumentID: [id number] Dictated Date: 05/28/2018 13:10:17 Developmental Therapist Date: 05/28/2018 21:32:02 Dictated By: MELIA WILSON MD
== END | disposition home or self-care (01) ==
LOC: ENDO 10:07
PROVIDERS: ATTEND Surgery
DX: K57.30 Diverticulosis of large intestine without perforation or abscess without bleeding (principal); K21.9 Gastro-esophageal reflux disease without esophagitis; Z85.820 Personal history of malignant melanoma of skin; Z87.19 Personal history of other diseases of the digestive system; Z79.899 Other long term (current) drug therapy